=== PATIENT | female | born 1935 | race Caucasian/White ===

== ENCOUNTER 2022-06-14 10:23 | Outpatient (CLI) | payer MEDICARE, OTHER | END 2022-06-14 10:24 | disposition home or self-care (01) | LOC: TBSIIMAG 10:23 | PROVIDERS: ATTEND Neurological Surgery | DX: M48.56XA Collapsed vertebra, not elsewhere classified, lumbar region, initial encounter for fracture (principal) | CPT/HCPCS: 72072 ==